=== PATIENT | female | born 1960 | race Caucasian/White ===

== ENCOUNTER 2017-01-06 12:52 | Emergency (ER) | payer SELFPAY ==
[~2017-01-06] VITALS: Ht 172.7 cm; Wt 60.4 kg
[2017-01-06 13:52] LABS: HEMATOCRIT 39.4 % (36.0-46.0); MCHC 32.2 G/DL (30.0-36.0); MCV 96.1 FL (83-99); MEAN PLAT.VOLUME 11.4 uM^3 (9.5-12.4); PLATELET COUNT 229 K/uL (156-360); RBC DIS.WIDTH-CV 12.2 % (11.8-14.6); RBC DIS.WIDTH-SD 42.8 % (39-53)
[2017-01-06 13:52] LABS: ADD MIUA? YES; BILIRUBIN NEGATIVE; BLOOD SMALL; COLOR YELLOW ((YELLOW)); GLUCOSE (STRIP) NEGATIVE; KETONES NEGATIVE; LEUKOCYTES LARGE; NITRITE NEGATIVE; PROTEIN (STRIP) 30; UROBILINOGEN 0.2 MG/DL (0.2-1.0)
[2017-01-06 14:01] LABS: CHLORIDE 100 mEq/L (99-109); POTASSIUM 3.7 mEq/L (3.7-5.4); SODIUM 140 mEq/L (136-147)
[2017-01-06 14:02] LABS: BACTERIA 3+ /HPF; CALCIUM OXALATE CRYSTALS 3+ /HPF; EPITHELIAL CELLS RARE /HPF; MUCUS TRACE /LPF; UCUL ADDED? YES; WHITE BLOOD CELLS TNTC /HPF (0-5); WHITE BLOOD CELLS CLUMP FEW /HPF (0-5)
[2017-01-06 14:03] LABS: GLUCOSE 99 mg/dL (70-99)
[2017-01-06 14:04] LABS: ANION GAP 9 MEQ/L (2-14)
[2017-01-06 14:05] LABS: TOTAL BILIRUBIN 0.7 mg/dL (0.0-1.0)
[2017-01-06 14:07] LABS: ALKALINE PHOSPHATASE 83 IU/L (3-129); GFR ESTIMATE (CALCULATED) > 59 mL/min/
[2017-01-06 14:08] LABS: UREA NITROGEN (BUN) 15 mg/dL (9-23)
[2017-01-06] MEDS ORDERED: FLAGYL500 MG PO (16:49)
[2017-01-06] MEDS ORDERED: BACTRIM,SEPT1 TABLET PO (16:49)
[2017-01-06 17:15] VITALS: BP 142/70
[2017-01-07] MEDS ORDERED: ZANTAC150 MG PO (07:53)
[2017-01-07] MEDS ORDERED: WOMEN'S 50 PLU1 EACH PO (16:36)
[2017-01-07] MEDS ORDERED: L-ARGININE500 M1 PO (16:37)
[2017-01-07] MEDS ORDERED: ALIGN4 MG PO (16:37)
[2017-01-07] MEDS ORDERED: B-COMPLEX-VITA1 EACH PO (16:37)
[2017-01-07] MEDS ORDERED: [UNRECOGNIZED DRUG - OTHER] PO (16:41)
[2017-01-07] MEDS ORDERED: ZYRTEC10 M3 PO (16:42)
[2017-01-07] MEDS ORDERED: TYLENOL EXTRA500 MG PO (16:42)
[2017-01-07] MEDS ORDERED: BIOTIN1000 MCG PO (16:42)
== END 2017-01-06 17:16 | disposition home or self-care (01) ==
LOC: EME 12:52
PROVIDERS: Nurse Practitioner Family
DX: N39.0 Urinary tract infection, site not specified (principal); K52.9 Noninfective gastroenteritis and colitis, unspecified; Z88.0 Allergy status to penicillin
CPT/HCPCS: 74176; 80053; 81003; 85027; 87077; 87086; 87186; 99281; 99284; J1885

== ENCOUNTER 2017-01-07 02:51 | Inpatient (IN) | payer SELFPAY ==
[~2017-01-07] VITALS: Ht 172.7 cm; Wt 59.9 kg
[~2017-01-07 02:51] MED LIST: BACTRIM,SEPT1 TABLET PO; FLAGYL500 MG PO
[2017-01-07 03:28] LABS: EOSINOPHIL (%) 0.3 % (0-5); HEMATOCRIT 38.4 % (36.0-46.0); IMMATURE GRANULOCYTE (%) 0.6 % (0.0-0.7); IMMATURE GRANULOCYTE COUNT 0.1 K/uL; INSTRUMENT ABS NEUTROPHIL CT 12.7 K/uL; LYMPHOCYTE COUNT 0.3 K/uL (1.0-2.8); MCH 31.1 PG (29.0-34.0); MCHC 33.3 G/DL (30.0-36.0); MCV 93.2 FL (83-99); MEAN PLAT.VOLUME 11.9 uM^3 (9.5-12.4); MONOCYTE (%) 7.4 % (3-12); MONOCYTE COUNT 1.1 K/uL (0-0.8); NEUTROPHIL (%) 89.3 % (45-76); NEUTROPHIL COUNT 12.7 K/uL (1.8-6.4); PLATELET COUNT 208 K/uL (156-360); RBC DIS.WIDTH-SD 41.5 % (39-53); RED BLOOD COUNT 4.12 M/uL (3.80-5.20); WHITE BLOOD COUNT 14.3 K/uL (4.1-10.2)
[2017-01-07 03:40] LABS: CHLORIDE 99 mEq/L (99-109); POTASSIUM 3.5 mEq/L (3.7-5.4); SODIUM 137 mEq/L (136-147)
[2017-01-07 03:42] LABS: GLUCOSE 130 mg/dL (70-99)
[2017-01-07 03:44] LABS: ANION GAP 11 MEQ/L (2-14)
[2017-01-07 03:46] LABS: GFR ESTIMATE (CALCULATED) 55 mL/min/
[2017-01-07 03:47] LABS: UREA NITROGEN (BUN) 15 mg/dL (9-23)
[2017-01-07 06:41] LABS: INTER. NORMALIZED RATIO 1.1; PROTHROMBIN TIME 12.5 SEC (10.2-12.9)
[2017-01-07 07:27] VITALS: BP 116/80
[2017-01-07 07:35] VITALS: BP 114/68
[2017-01-07] MEDS ORDERED: ZANTAC150 MG PO (07:53)
[2017-01-07 12:08] VITALS: BP 90/52
[2017-01-07] MEDS ORDERED: WOMEN'S 50 PLU1 EACH PO (16:36)
[2017-01-07] MEDS ORDERED: B-COMPLEX-VITA1 EACH PO (16:37)
[2017-01-07] MEDS ORDERED: L-ARGININE500 M1 PO (16:37)
[2017-01-07] MEDS ORDERED: ALIGN4 MG PO (16:37)
[2017-01-07] MEDS ORDERED: [UNRECOGNIZED DRUG - OTHER] PO (16:41)
[2017-01-07] MEDS ORDERED: ZYRTEC10 M3 PO (16:42)
[2017-01-07] MEDS ORDERED: TYLENOL EXTRA500 MG PO (16:42)
[2017-01-07] MEDS ORDERED: BIOTIN1000 MCG PO (16:42)
[2017-01-07 16:59] VITALS: BP 107/60
[2017-01-07 17:29] LABS: ADD MIUA? YES; BILIRUBIN NEGATIVE; BLOOD NEGATIVE; COLOR STRAW ((YELLOW)); GLUCOSE (STRIP) NEGATIVE; KETONES NEGATIVE; LEUKOCYTES TRACE; NITRITE NEGATIVE; PROTEIN (STRIP) NEGATIVE; SPECIFIC GRAVITY 1.005 (1.000-1.030); UROBILINOGEN 0.2 MG/DL (0.2-1.0)
[2017-01-07 17:47] LABS: BACTERIA NONE SEEN /HPF; EPITHELIAL CELLS RARE /HPF; MUCUS TRACE /LPF; RED BLOOD CELLS 0-5 /HPF (0-5); UCUL ADDED? NO
[2017-01-07 19:18] VITALS: BP 151/70
[2017-01-07 19:42] VITALS: BP 111/65
[2017-01-08] VITALS (7 sets, daily range): BP systolic 104–138; BP diastolic 56–78
[2017-01-08 06:46] LABS: EOSINOPHIL (%) 4.6 % (0-5); EOSINOPHIL COUNT 0.5 K/uL (0-0.3); HEMATOCRIT 34.6 % (36.0-46.0); IMMATURE GRANULOCYTE (%) 0.3 % (0.0-0.7); INSTRUMENT ABS NEUTROPHIL CT 8.1 K/uL; LYMPHOCYTE COUNT 0.7 K/uL (1.0-2.8); MCH 30.9 PG (29.0-34.0); MCHC 32.1 G/DL (30.0-36.0); MCV 96.4 FL (83-99); MEAN PLAT.VOLUME 12.2 uM^3 (9.5-12.4); MONOCYTE (%) 8.8 % (3-12); MONOCYTE COUNT 0.9 K/uL (0-0.8); NEUTROPHIL (%) 79.1 % (45-76); NEUTROPHIL COUNT 8.1 K/uL (1.8-6.4); PLATELET COUNT 162 K/uL (156-360); RBC DIS.WIDTH-CV 12.7 % (11.8-14.6); RBC DIS.WIDTH-SD 44.8 % (39-53); RED BLOOD COUNT 3.59 M/uL (3.80-5.20); WHITE BLOOD COUNT 10.3 K/uL (4.1-10.2)
[2017-01-08 07:11] LABS: ANION GAP 7 MEQ/L (2-14); CHLORIDE 107 MEQ/L (99-109); GFR ESTIMATE (CALCULATED) > 59 mL/min/; MAGNESIUM 1.9 mg/dl (1.3-2.7); POTASSIUM 3.7 MEQ/L (3.7-5.4); SAMPLE HEMOLYSIS CHECK 0; SAMPLE ICTERIC CHECK 0; SAMPLE LIPEMIA CHECK 0; SODIUM 140 MEQ/L (136-147); UREA NITROGEN (BUN) 7 mg/dL (9-23)
[2017-01-08 07:12] LABS: GLUCOSE 89 mg/dL (70-99)
[2017-01-09 03:23] VITALS: BP 128/68
[2017-01-09 06:21] LABS: HEMATOCRIT 33.4 % (36.0-46.0); MCHC 32.6 G/DL (30.0-36.0); MCV 94.9 FL (83-99); MEAN PLAT.VOLUME 11.6 uM^3 (9.5-12.4); PLATELET COUNT 180 K/uL (156-360); RBC DIS.WIDTH-CV 12.5 % (11.8-14.6); RBC DIS.WIDTH-SD 43.7 % (39-53); RED BLOOD COUNT 3.52 M/uL (3.80-5.20); WHITE BLOOD COUNT 7.5 K/uL (4.1-10.2)
[2017-01-09 07:30] VITALS: BP 146/90
[2017-01-09 07:33] LABS: ANION GAP 10 MEQ/L (2-14); CHLORIDE 109 MEQ/L (99-109); GFR ESTIMATE (CALCULATED) > 59 mL/min/; GLUCOSE 91 mg/dL (70-99); POTASSIUM 3.9 MEQ/L (3.7-5.4); SAMPLE HEMOLYSIS CHECK 0; SAMPLE ICTERIC CHECK 0; SAMPLE LIPEMIA CHECK 0; SODIUM 142 MEQ/L (136-147); UREA NITROGEN (BUN) 5 mg/dL (9-23)
[2017-01-09] MEDS ORDERED: ZOFRAN4 MG PO (08:40)
[2017-01-09] MEDS ORDERED: CIPRO500 MG PO (08:40)
== END 2017-01-09 12:49 | disposition home or self-care (01) | DRG 392 ==
LOC: EME 02:51 → EDOF 05:55 → 2EAST 05:55 → ENRESERV 05:57 → 2EAST 07:24
PROVIDERS: Internal Medicine; Physician Assistant Medical
PROC: 0DJD8ZZ Inspection of Lower Intestinal Tract, Via Natural or Artificial Opening Endoscopic (ICD-10-PCS; principal; 2017-01-08)
DX: K57.32 Diverticulitis of large intestine without perforation or abscess without bleeding (principal); N30.00 Acute cystitis without hematuria; B96.20 Unspecified Escherichia coli [E. coli] as the cause of diseases classified elsewhere; K58.9 Irritable bowel syndrome, unspecified; I10 Essential (primary) hypertension; K21.9 Gastro-esophageal reflux disease without esophagitis; R00.0 Tachycardia, unspecified; Z87.891 Personal history of nicotine dependence; Z80.3 Family history of malignant neoplasm of breast; Z82.49 Family history of ischemic heart disease and other diseases of the circulatory system; Z83.3 Family history of diabetes mellitus
CPT/HCPCS: 80048; 81003; 83605; 83735; 85025; 85027; 85610; 85651; 87040; 87086; 93005; 99281; 99285; J1650; J1956; J2250; J2405; J2765; J3010; J7030; S0030